=== PATIENT | male | born 1945 | race Caucasian/White ===

== ENCOUNTER 2019-12-14 08:36 | Outpatient (CLI) | payer MEDICARE, MEDICAID ==
[~2019-12-14 08:36] MED LIST: ALBU18HF2 INH; ASPI325T85 PO; ATOR80TA PO; BUPR150T6; CLOP75TA35 PO; FURO40TA4 PO; NITR0.4T48 SL; UMEC1DIS
[2019-12-14 09:16] LABS: ABG BASE EXCESS -1.1 mmol/L (-2.0-3.0); ABG HCO3 22.3 mmol/L (22.0-26.0); ABG OXYGEN SATURATION 96.1 % (95-98); ABG PCO2 (T) 33.9 mmHg (35.0-45.0); ABG PH (T) 7.435 (7.350-7.450); ABG PO2 (T) 80.3 mmHg (83-108); ALLEN'S TEST POSITIVE; FCOHb 0.3 % (0.5-1.5); FLOW 2 L/min; FMetHb 0.1 % (0.3-1.12); FO2Hb 95.7 % (94-100)
[2019-12-14] MEDS ORDERED: albuterol 2.5 MG/3 ML nebule NEB ONE (09:30)
== END 2019-12-14 23:59 | disposition home or self-care (01) ==
LOC: RT 08:36
PROVIDERS: ATTEND Internal Medicine Pulmonary Disease
DX: J45.909 Unspecified asthma, uncomplicated (principal); R06.02 Shortness of breath; G47.33 Obstructive sleep apnea (adult) (pediatric)
CPT/HCPCS: 36600; 82803; 85018; 94060; 94727; 94729; 94760